=== PATIENT | female | born 1960 ===

== ENCOUNTER 2017-11-24 11:44 | Emergency (ER) | payer OTHER ==
[2017-11-24 11:54] VITALS: BP 156/78; PULSE 82; O2SAT 98
[2017-11-24 12:04] VITALS: RESP 18; TEMP 97.4
--- NOTE | 2017-11-24 13:08 | ED PDOC ---
HPI: Back Time Seen by Provider: 11/24/17 13:00 Chief Complaint (Nursing): Back Pain Chief Complaint (Provider): Back Pain History Per: Patient History/Exam Limitations: no limitations Onset/Duration Of Symptoms: Other (x1 week) Current Symptoms Are (Timing): Still Present Additional Complaint(s): 57 year old female presents to ED with complaints of lower back pain x1 week and has a past medical history of HTN. Patient states that the pain is concentrated to a specific point in her lower back and radiates into her right leg to the plantar aspect of her right foot. Denies any trauma, and states she was picking up something off the floor at time of onset. Notes she has experienced a similar pain 3 years ago. PCP: None - Risk Factors AAA Risk Factors: Pos: Older Than 49 Years Of Age, Hypertension Past Medical History Reviewed: Historical Data, Nursing Documentation, Vital Signs Vital Signs: Last Vital Signs Temp 97.4 F L 11/24/17 12:01 Pulse 82 11/24/17 12:01 Resp 18 11/24/17 12:01 BP 156/78 H 11/24/17 12:01 Pulse Ox 98 11/24/17 12:01 - Medical History PMH: HTN - Family History Family History: States: Unknown Family Hx - Living Arrangements Living Arrangements: With Family - Social History Alcohol: None Drugs: Denies - Home Medications Home Medications: Ambulatory Orders Medication Instructions Recorded Naproxen 375 mg PO Q8 PRN #21 tab 04/25/15 diaZEpam [Valium] 5 mg PO Q6 PRN #14 tab 04/25/15 oxyCODONE/Acetaminophen [Percocet 1 ea PO Q6 #10 tab 04/25/15 5/325 mg Tab] Ibuprofen [Motrin] 600 mg PO Q8 PRN #21 tab 12/02/17 Promethazine/Codeine 5 ml PO Q12 PRN #100 ml 12/02/17 [Codeine/Promethazine 10 MG/5 Ml-6.25 MG/5 Ml] - Allergies Allergies/Adverse Reactions: Allergies Allergy/AdvReac Type Severity Reaction Status Date / Time No Known Allergies Allergy Verified 11/24/17 12:01 Review of Systems ROS Statement: Except As Marked, All Systems Reviewed And Found Negative Musculoskeletal: Positive for: Back Pain, Leg Pain (back pain radiates into her right leg) Physical Exam - Reviewed Nursing Documentation Reviewed: Yes Vital Signs Reviewed: Yes - Physical Exam Appears: Positive for: Non-toxic, Uncomfortable Back: Positive for: Other ((+) right-sided straight leg raise. Pain reproducible from paraspinal L5-6 region to piriformis to plantar region of right foot). Negative for: Normal Inspection, Vertebral Tenderness Neurologic/Psych: Negative for: Motor/Sensory Deficits - ECG O2 Sat by Pulse Oximetry: 98 (RA) Pulse Ox Interpretation: Normal Medical Decision Making Medical Decision Makin Initial impression: sciatica Initial plan: * Dexamethasone 10mg IM * Toradol 60mg IM * Acetaminophen 650mg PO * Re-eval Scribe Attestation: Documented by Maris Garcia, acting as a scribe for Osiel Ward PA-C. Provider Scribe Attestation: All medical record entries made by the Scribe were at my direction and personally dictated by me. I have reviewed the chart and agree that the record accurately reflects my personal performance of the history, physical exam, medical decision making, and the department course for this patient. I have also personally directed, reviewed, and agree with the discharge instructions and disposition. Disposition - Clinical Impression Clinical Impression: Sciatic leg pain, Chronic back pain, Low back pain - Disposition Referrals: [facility] [Outside] Disposition Time: 13:20 Condition: GOOD Additional Instructions: 650mg acetaminophin or tylenol 3 times a day 600mg ibuprofen or motrin 4 times a day follow up with referral clinic, noted below for buttermaker management of this chronic condition Instructions: Low Back Pain (DC), Sciatica (DC), Sciatica Exercises Forms: nap- [employer] (Martiniquais) Print Language: MARSHALLESE
== END 2017-11-24 13:36 | disposition home or self-care (01) ==
LOC: H.ER 11:44
DX: G89.29 Other chronic pain (principal); I10 Essential (primary) hypertension
CPT/HCPCS: 96372; 99282; J1100; J1885

== ENCOUNTER 2017-12-02 10:41 | Emergency (ER) | payer OTHER ==
[2017-12-02 10:56] VITALS: BP 155/84; PULSE 80; TEMP 97; O2SAT 98
[2017-12-02 10:57] VITALS: BMI 31.8
--- NOTE | 2017-12-02 12:10 | ED PDOC ---
HPI: CCC, URI, Sore Throat Time Seen by Provider: 12/02/17 12:03 Chief Complaint (Nursing): ENT Problem Chief Complaint (Provider): ENT Problem History Per: Patient History/Exam Limitations: no limitations Onset/Duration Of Symptoms: Days (x4) Current Symptoms Are (Timing): Still Present Sick Contacts (Context): None Associated Symptoms: Fever, Sore Throat, Cough, Other (headache) Additional Complaint(s): 57 year old female with medical history of hypertension, presents to the emergency department with a complaint of fever, headache, sore throat and cough ongoing for 4 days. She denied any sick contacts at home and has been taking Tylenol for relief. PMD: none provided Past Medical History Reviewed: Historical Data, Nursing Documentation, Vital Signs Vital Signs: Last Vital Signs Temp 97 F L 12/02/17 10:55 Pulse 80 12/02/17 10:55 Resp BP 155/84 H 12/02/17 10:55 Pulse Ox 98 12/02/17 12:58 - Medical History PMH: HTN - Surgical History Surgical History: No Surg Hx - Family History Family History: States: Unknown Family Hx - Social History Current smoker - smoking cessation education provided: No Alcohol: None Drugs: Denies - Home Medications Home Medications: Ambulatory Orders Medication Instructions Recorded Naproxen 375 mg PO Q8 PRN #21 tab 04/25/15 diaZEpam [Valium] 5 mg PO Q6 PRN #14 tab 04/25/15 oxyCODONE/Acetaminophen [Percocet 1 ea PO Q6 #10 tab 04/25/15 5/325 mg Tab] Ibuprofen [Motrin] 600 mg PO Q8 PRN #21 tab 12/02/17 Promethazine/Codeine 5 ml PO Q12 PRN #100 ml 12/02/17 [Codeine/Promethazine 10 MG/5 Ml-6.25 MG/5 Ml] - Allergies Allergies/Adverse Reactions: Allergies Allergy/AdvReac Type Severity Reaction Status Date / Time No Known Allergies Allergy Verified 11/24/17 12:01 Review of Systems ROS Statement: Except As Marked, All Systems Reviewed And Found Negative Constitutional: Positive for: Fever ENT: Positive for: Throat Pain Respiratory: Positive for: Cough Neurological: Positive for: Headache Physical Exam - Reviewed Nursing Documentation Reviewed: Yes Vital Signs Reviewed: Yes - Physical Exam Appears: Positive for: Non-toxic, No Acute Distress ENT: Positive for: Pharynx Is (within normal limits), TM Is/Are (clear bilaterally), Nasal Congestion, Pharyngeal Erythema (mild). Negative for: Tonsillar Exudate Cardiovascular/Chest: Positive for: Regular Rate, Rhythm, Chest Non Tender Respiratory: Positive for: Normal Breath Sounds. Negative for: Decreased Breath Sounds, Wheezing, Respiratory Distress Neurologic/Psych: Positive for: Alert (x3), Oriented - ECG O2 Sat by Pulse Oximetry: 98 (RA) Pulse Ox Interpretation: Normal - Progress ED Course And Treament: rapid strep negative influenza a/b negative Medical Decision Making Medical Decision Making: Initial Impression: Viral illness Initial Plan: * Rapid strep * Influenza A B Time: 1255 --Rapid strep: negative Scribe Attestation: Documented by Shalini Daly, acting as a scribe for Amparo Bates PA-C. Provider Scribe Attestation: All medical record entries made by the Scribe were at my direction and personally dictated by me. I have reviewed the chart and agree that the record accurately reflects my personal performance of the history, physical exam, medical decision making, and the department course for this patient. I have also personally directed, reviewed, and agree with the discharge instructions and disposition. Disposition - Clinical Impression Clinical Impression: Viral illness - Patient ED Disposition Is Patient to be Admitted: No - Disposition Disposition: Routine/Home Disposition Time: 13:07 Condition: FAIR Prescriptions: Ibuprofen [Motrin] 600 mg PO Q8 PRN #21 tab PRN Reason: Pain, Moderate (4-7) Promethazine/Codeine [Codeine/Promethazine 10 MG/5 Ml-6.25 MG/5 Ml] 5 ml PO Q12 PRN #100 ml PRN Reason: Cough Instructions: Cough, Runny Nose, and the Common Cold, Cough, Adult (DC) Forms: [employer] ED School/Work Excuse Print Language: INDONESIAN
== END 2017-12-02 13:44 | disposition home or self-care (01) ==
LOC: H.ER 10:41
DX: B34.9 Viral infection, unspecified (principal); I10 Essential (primary) hypertension

== ENCOUNTER 2018-07-19 11:20 | Emergency (ER) | payer OTHER ==
[2018-07-19 11:20] VITALS: BMI 31.8
--- NOTE | 2018-07-19 12:03 | ED PDOC ---
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 states since Saturday she's had a productive cough with R sided flank pain present only with coughing. States also that yesterday she developed a fever. Denies SOB, hemoptysis, sick contacts, recent travel, hemoptysis, hx of DVT or PE, leg pain, rash, trauma, hematuria, dysuria, incontinence. Past Medical History Reviewed: Historical Data, Nursing Documentation, Vital Signs Vital Signs: Last Vital Signs Temp 98.3 F 07/19/18 11:28 Pulse 97 H 07/19/18 11:28 Resp 20 07/19/18 11:28 BP 148/75 07/19/18 11:28 Pulse Ox 96 07/19/18 11:28 - Medical History PMH: HTN Denies: Deep Vein Thrombosis, Pulmonary Embolism - Family History Family History: States: No Known Family Hx - Home Medications Home Medications: Ambulatory Orders Medication Instructions Recorded RX: Naproxen 375 mg PO Q8 PRN #21 tab 04/25/15 diaZEpam [Valium] 5 mg PO Q6 PRN #14 tab 04/25/15 oxyCODONE/Acetaminophen [Percocet 1 ea PO Q6 #10 tab 04/25/15 5/325 mg Tab] Ibuprofen [Motrin] 600 mg PO Q8 PRN #21 tab 12/02/17 Promethazine/Codeine 5 ml PO Q12 PRN #100 ml 12/02/17 [Codeine/Promethazine 10 MG/5 Ml-6.25 MG/5 Ml] Albuterol HFA [Ventolin HFA 90 2 puff IH [id number] PRN #60 puff 07/19/18 mcg/actuation (8 g)] Nitrofurantoin Macrocrystals 100 mg PO BID #14 cap 07/19/18 [Macrobid] RX: Promethazine DM [Phenergan DM 5 - 10 ml PO Q8 PRN #120 ml 07/19/18 Syrup] - Allergies Allergies/Adverse Reactions: Allergies Allergy/AdvReac Type Severity Reaction Status Date / Time No Known Allergies Allergy Verified 11/24/17 12:01 Review of Systems ROS Statement: Except As Marked, All Systems Reviewed And Found Negative Constitutional: Positive for: Fever Respiratory: Positive for: Cough Musculoskeletal: Positive for: Back Pain Physical Exam - Physical Exam Appears: Positive for: Well, Non-toxic, No Acute Distress Skin: Positive for: Normal Color, Warm. Negative for: Rash Eye Exam: Positive for: Normal appearance Cardiovascular/Chest: Positive for: Regular Rate, Rhythm, Chest Non Tender Respiratory: Positive for: Normal Breath Sounds. Negative for: Respiratory Distress Gastrointestinal/Abdominal: Positive for: Normal Exam, Soft. Negative for: Tenderness Back: Positive for: Normal Inspection, R CVA Tenderness. Negative for: L CVA Tenderness Neurologic/Psych: Positive for: Alert, Oriented (x3). Negative for: Aphasia, Facial Droop - Laboratory Results Result Diagrams: 07/19/18 12:35 07/19/18 12:35 - ECG O2 Sat by Pulse Oximetry: 96 - Radiology X-Ray: Interpreted by Me (CXR) X-Ray Interpretation: No Acute Disease - Progress ED Course And Treament: CXR, urine ordered. Urine - small blood. Labs, CT abd/pelvis w/o contrast, urine culture ordered. CT abd/pelvis w/o contrast: negative D-dimer: negative. Pt informed of results and agrees with plan and care. Disposition - Clinical Impression Clinical Impression: Acute bronchitis, UTI (urinary tract infection) - Patient ED Disposition Is Patient to be Admitted: No - Disposition Referrals: [facility] [Outside] Disposition: Routine/Home Disposition Time: 14:48 Condition: STABLE Additional Instructions: DARIN JACQUES, thank you for letting us take care of you today. Your provider was Sal Harris MD and you were treated for EAR PAIN,BACK PAIN,COUGH. The emergency medical care you received today was directed at your acute symptoms. If you were prescribed any medication, please fill it and take as directed. It may take several days for your symptoms to resolve. Return to the Emergency Department if your symptoms worsen, do not improve, or if you have any other problems. Please contact your doctor or call one of the physicians/clinics you have been referred to that are listed on the Patient Visit Information form that is included in your discharge packet. Bring any paperwork you were given at discharge with you along with any medications you are taking to your follow up visit. Our treatment cannot replace ongoing medical care by a primary care provider outside of the emergency department. Thank you for allowing the [facility] team to be part of your care today. If you had an X-Ray or CT scan: A Radiologist will review the ED reading if any change in treatment is needed we will contact you. If you had a blood, urine, or wound culture: It will take several days for the results, if any change in treatment is needed we will contact you. If you had an STI test: It will take 48 hours for the results. Please call after 1 week if you have not heard back. Prescriptions: Albuterol HFA [Ventolin HFA 90 mcg/actuation (8 g)] 2 puff IH [id number] PRN #60 puff PRN Reason: Cough/wheezing Nitrofurantoin Macrocrystals [Macrobid] 100 mg PO BID #14 cap RX: Promethazine DM [Phenergan DM Syrup] 5 - 10 ml PO Q8 PRN #120 ml PRN Reason: Cough Instructions: Acute Bronchitis, Adult (DC), Urinary Tract Infection, Adult (DC) Forms: [employer] (Khmer) Wells Criteria for PE - Wells Criteria for Pulmonary Embolism Clinical Signs and Symptoms of DVT: No P.E is #1 Diagnosis, or Equally Likely: No Heart Rate >100: No Immobilization at least 3 days;Surgery previous 4 weeks: No Previous, objectively diagnosed PE or DVT: No Hemoptysis: No Malignancy w/treatment within 6 months, or palliative: No Total Score: 0
[2018-07-19 12:40] LABS: BASO % 0.4 % (0.0-2.0); EOS # 0.3 K/uL (0.0-0.7); EOS % 4.9 % (0.0-4.0); HEMOGLOBIN 13.3 g/dL (12.0-16.0); LYMPH % 33.8 % (20.0-40.0); MEAN CORPUSCULAR HEMOGLOBIN 29.9 pg (27.0-31.0); MEAN CORPUSCULAR HGB CONC 34.4 g/dL (33.0-37.0); MEAN PLATELET VOLUME 7.9 fl (7.2-11.7); MONO # 0.7 K/uL (0.0-0.8); NEUT % 49.9 % (50.0-75.0); NRBC % 0.1 % (0.0-0.0); RBC 4.45 Mil/uL (3.80-5.20)
[2018-07-19 12:47] LABS: SQUAMOUS EPITHIAL 9 /hpf (0-5); URINE AMORPHOUS SEDIMENT RARE /ul (<OCC); URINE BACTERIA RARE (<OCC); URINE BILIRUBIN NEGATIVE (NEGATIVE); URINE BLOOD SMALL (NEGATIVE); URINE CLARITY CLOUDY (Clear); URINE COLOR YELLOW (YELLOW); URINE GLUCOSE (UA) NEG (Normal); URINE LEUKOCYTE ESTERASE MOD Leu/uL (Negative); URINE PROTEIN 30 mg/dL (NEGATIVE); URINE UROBILINOGEN 0.2-1.0 mg/dL (0.2-1.0)
[2018-07-19 12:53] LABS: ALB/GLOB RATIO 1.3 (1.0-2.1); ALBUMIN 4.7 g/dL (3.5-5.0); ALT/SGPT 28 U/L (9-52); AST/SGOT 33 U/L (14-36); BLOOD UREA NITROGEN 18 mg/dl (7-17); CALCIUM 9.2 mg/dL (8.4-10.2); GFR NON-AFRICAN AMERICAN > 60
--- NOTE | 2018-07-19 14:16 | CT ---
Date of service: 07/19/2018 PROCEDURE: CT Abdomen and Pelvis without intravenous contrast HISTORY: R flank pain, UTI COMPARISON: None. TECHNIQUE: Technique. Contrast dose: Radiation dose: Total exam DLP = 827.88 mGy-cm. This CT exam was performed using one or more of the following dose reduction techniques: Automated exposure control, adjustment of the mA and/or kV according to patient size, and/or use of iterative reconstruction technique. FINDINGS: LOWER THORAX: small hiatal hernia. LIVER: Unremarkable. No gross lesion or ductal dilatation. GALLBLADDER AND BILE DUCTS: Unremarkable. PANCREAS: Unremarkable. No gross lesion or ductal dilatation. SPLEEN: Unremarkable. ADRENALS: Unremarkable. No mass. KIDNEYS AND URETERS: Unremarkable. No hydronephrosis. No solid mass. VASCULATURE: Unremarkable. No aortic aneurysm. No aortic atherosclerotic calcification or mural plaque present. BOWEL: Unremarkable. No obstruction. No gross mural thickening. APPENDIX: Unremarkable. Normal appendix. PERITONEUM: Unremarkable. No free fluid. No free air. LYMPH NODES: Unremarkable. No enlarged lymph nodes. BLADDER: Unremarkable. REPRODUCTIVE: Unremarkable. BONES: No acute fracture. OTHER FINDINGS: None. IMPRESSION: Unremarkable non contrast enhanced CT of the abdomen and pelvis.
--- NOTE | 2018-07-19 14:41 | RAD ---
Date of service: 07/19/2018 HISTORY: cough COMPARISON: No prior. TECHNIQUE: Chest PA and lateral FINDINGS: LUNGS: No active pulmonary disease. PLEURA: No significant pleural effusion identified. No pneumothorax apparent. CARDIOVASCULAR: No aortic atherosclerotic calcification present. Normal cardiac size. No pulmonary vascular congestion. OSSEOUS STRUCTURES: No significant abnormalities. VISUALIZED UPPER ABDOMEN: Normal. OTHER FINDINGS: None. IMPRESSION: No active disease.
[2018-07-19 15:22] VITALS: BP 130/76; PULSE 78; RESP 19; TEMP 97.6
[2018-07-19 15:27] VITALS: O2SAT 96
== END 2018-07-19 15:23 | disposition home or self-care (01) ==
LOC: H.ER 11:20
DX: J20.9 Acute bronchitis, unspecified (principal); N39.0 Urinary tract infection, site not specified; I10 Essential (primary) hypertension

== ENCOUNTER 2018-10-07 09:09 | Emergency (ER) | payer OTHER ==
[2018-10-07 09:10] VITALS: BMI 31.8
[2018-10-07 09:25] VITALS: RESP 16; TEMP 97.7
[2018-10-07] MEDS ORDERED: Sodium Chloride 0.9% 1,000 ML IV STA (09:48)
[2018-10-07] MEDS ORDERED: Albuterol-Ipratrop 3 mg / 0.5 (3 ml) UD INH STA (09:48)
[2018-10-07] MEDS ORDERED: guaiFENesin 200 mg/10 ml Syrup UD PO STA (09:48)
[2018-10-07 10:10] LABS: BASO % 0.2 % (0.0-2.0); EOS # 0.3 K/uL (0.0-0.7); EOS % 3.8 % (0.0-4.0); HEMOGLOBIN 13.7 g/dL (12.0-16.0); LYMPH # 2.2 K/uL (1.0-4.3); LYMPH % 29.9 % (20.0-40.0); MEAN CELL VOLUME 86.4 fl (81.0-99.0); MEAN CORPUSCULAR HEMOGLOBIN 29.7 pg (27.0-31.0); MEAN CORPUSCULAR HGB CONC 34.4 g/dL (33.0-37.0); MEAN PLATELET VOLUME 7.7 fl (7.2-11.7); MONO # 0.7 K/uL (0.0-0.8); MONO % 9.7 % (0.0-10.0); NEUT # 4.1 K/uL (1.8-7.0); NEUT % 56.4 % (50.0-75.0); RBC 4.6 Mil/uL (3.80-5.20); WHITE BLOOD COUNT 7.3 K/uL (4.8-10.8)
[2018-10-07 10:20] LABS: BLOOD UREA NITROGEN 23 mg/dl (7-17); CALCIUM 9.9 mg/dL (8.4-10.2); GFR NON-AFRICAN AMERICAN > 60
[2018-10-07] MEDS ORDERED: guaiFENesin 100 mg/5 ml Syrup UD ONE (10:20)
[2018-10-07] MEDS ORDERED: Albuterol-Ipratrop 3 mg / 0.5 (3 ml) UD ONE (10:21)
[2018-10-07 10:29] LABS: SQUAMOUS EPITHIAL 6 /hpf (0-5); URINE BACTERIA RARE (<OCC); URINE BILIRUBIN NEGATIVE (NEGATIVE); URINE BLOOD SMALL (NEGATIVE); URINE CLARITY CLOUDY (Clear); URINE COLOR YELLOW (YELLOW); URINE GLUCOSE (UA) NEG (NEGATIVE); URINE LEUKOCYTE ESTERASE LARGE Leu/uL (Negative); URINE PROTEIN 30 mg/dL (NEGATIVE); URINE UROBILINOGEN 0.2-1.0 mg/dL (0.2-1.0)
--- NOTE | 2018-10-07 10:29 | RAD ---
Date of service: 10/07/2018 HISTORY: chest pain/ r/o infiltrate COMPARISON: 07/19/2018 TECHNIQUE: Chest PA and lateral FINDINGS: LUNGS: No active pulmonary disease. PLEURA: No significant pleural effusion identified. No pneumothorax apparent. CARDIOVASCULAR: No aortic atherosclerotic calcification present. Normal cardiac size. No pulmonary vascular congestion. OSSEOUS STRUCTURES: No significant abnormalities. VISUALIZED UPPER ABDOMEN: Normal. OTHER FINDINGS: None. IMPRESSION: No active disease.
--- NOTE | 2018-10-07 11:43 | ED PDOC ---
History of Present Illness History of Present Illness: 58yo female, comes to ER with flu like symptoms for the past 1 week. Patient reports fever, cough, headache and a sore throat. She denies any associated vomiting or diarrhea. Patient states he has been taking Tylenol at home with minimal relief. She also states in July 2018, patient was here with similar symptoms and had a urine infection as well. Patient did not receive her flu shot this year. No additional complaints. 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 denies: vomiting, diarrhea Hx Influenza Vaccination: No Past Medical History Reviewed: Historical Data, Nursing Documentation, Vital Signs Vital Signs: Last Vital Signs Temp 97.7 F 10/07/18 09:25 Pulse 90 10/07/18 09:25 Resp 16 10/07/18 09:25 BP 148/77 10/07/18 09:25 Pulse Ox 96 10/07/18 09:25 - Medical History PMH: HTN Denies: Deep Vein Thrombosis, Pulmonary Embolism - Surgical History Surgical History: No Surg Hx - Family History Family History: States: Unknown Family Hx - Home Medications Home Medications: Ambulatory Orders Medication Instructions Recorded Naproxen 375 mg PO Q8 PRN #21 tab 04/25/15 diaZEpam [Valium] 5 mg PO Q6 PRN #14 tab 04/25/15 oxyCODONE/Acetaminophen [Percocet 1 ea PO Q6 #10 tab 04/25/15 5/325 mg Tab] Ibuprofen [Motrin] 600 mg PO Q8 PRN #21 tab 12/02/17 Promethazine/Codeine 5 ml PO Q12 PRN #100 ml 12/02/17 [Codeine/Promethazine 10 MG/5 Ml-6.25 MG/5 Ml] Albuterol HFA [Ventolin HFA 90 2 puff IH [id number] PRN #60 puff 07/19/18 mcg/actuation (8 g)] Nitrofurantoin Macrocrystals 100 mg PO BID #14 cap 07/19/18 [Macrobid] Promethazine DM [Phenergan DM 5 - 10 ml PO Q8 PRN #120 ml 07/19/18 Syrup] Cephalexin [cephalexin] 500 mg PO TID #21 cap 10/07/18 Ibuprofen [Motrin Tab] 600 mg PO Q6 PRN #15 tab 10/07/18 guaiFENesin [guaifENESIN] 200 mg PO Q4 PRN #200 ml 10/07/18 - Allergies Allergies/Adverse Reactions: Allergies Allergy/AdvReac Type Severity Reaction Status Date / Time No Known Allergies Allergy Verified 10/07/18 09:23 Review of Systems ROS Statement: Except As Marked, All Systems Reviewed And Found Negative Constitutional: Positive for: Fever ENT: Positive for: Throat Pain Respiratory: Positive for: Cough Gastrointestinal: Negative for: Nausea, Vomiting, Diarrhea Neurological: Positive for: Headache Physical Exam - Reviewed Nursing Documentation Reviewed: Yes Vital Signs Reviewed: Yes - Physical Exam Appears: Positive for: Non-toxic, No Acute Distress Head Exam: Positive for: ATRAUMATIC, NORMAL INSPECTION, NORMOCEPHALIC Skin: Positive for: Normal Color Eye Exam: Positive for: Normal appearance Neck: Positive for: Normal, Supple Cardiovascular/Chest: Positive for: Regular Rate, Rhythm Respiratory: Positive for: Normal Breath Sounds, Other (patient actively coughing in ER) Gastrointestinal/Abdominal: Positive for: Normal Exam, Soft Back: Positive for: Normal Inspection Extremity: Positive for: Normal ROM Neurologic/Psych: Positive for: Alert, Oriented Medical Decision Making Medical Decision Making: Impression: 58yo female with flu like symptoms Plan: -- Patient is out of range for empiric tamiflu treatment -- Urinalysis -- Labs -- Chest x-ray -- Urine culture 1140 CXR FINDINGS: LUNGS: No active pulmonary disease. PLEURA: No significant pleural effusion identified. No pneumothorax apparent. CARDIOVASCULAR: No aortic atherosclerotic calcification present. Normal cardiac size. No pulmonary vascular congestion. OSSEOUS STRUCTURES: No significant abnormalities. VISUALIZED UPPER ABDOMEN: Normal. OTHER FINDINGS: None. IMPRESSION: No active disease. Patient to be discharged home on keflex to treat urine infection. Urine cultures sent. On reassessment, patient is in no acute distress and stable for discharge home. Scribe Attestation: Documented by Shelli Beckford acting as a scribe for Miguel Ángel Askew DO. Provider Attestation: All medical record entries made by the Scribe were at my direction and personally dictated by me. I have reviewed the chart and agree that the record accurately reflects my personal performance of the history, physical exam, medical decision making, and the department course for this patient. I have also personally directed, reviewed, and agree with the discharge instructions and disposition. - Laboratory Results Result Diagrams: 10/07/18 10:00 10/07/18 10:00 Lab Results: Urine Color Yellow (YELLOW) 10/07/18 10:00 Urine Clarity Cloudy (Clear) 10/07/18 10:00 Urine pH 5.0 (5.0-8.0) 10/07/18 10:00 Ur Specific [place] 1.027 (1.003-1.030) 10/07/18 10:00 Urine Protein 30 mg/dL (NEGATIVE) 10/07/18 10:00 Urine Glucose (UA) Neg mg/dL (NEGATIVE) 10/07/18 10:00 Urine Ketones Negative mg/dL (NEGATIVE) 10/07/18 10:00 Urine Blood Small (NEGATIVE) 10/07/18 10:00 Urine Nitrate Negative (NEGATIVE) 10/07/18 10:00 Urine Bilirubin Negative (NEGATIVE) 10/07/18 10:00 Urine Urobilinogen 0.2-1.0 mg/dL (0.2-1.0) 10/07/18 10:00 Ur Leukocyte Esterase Large Pat/uL (Negative) 10/07/18 10:00 Urine RBC (Auto) 6 /hpf (0-3) H 10/07/18 10:00 Urine Microscopic WBC 23 /hpf (0-5) H 10/07/18 10:00 Ur Squamous Epith Cells 6 /hpf (0-5) H 10/07/18 10:00 Urine Bacteria Rare (<OCC) 10/07/18 10:00 - ECG O2 Sat by Pulse Oximetry: 96 Disposition - Clinical Impression Clinical Impression: UTI (urinary tract infection), Flu-like symptoms, Cough - Disposition Referrals: [facility] [place] [Outside] Disposition: Routine/Home Disposition Time: 11:40 Condition: STABLE Additional Instructions: Return to ER for any worse or new symptoms. Take medications as directed. Drink plenty of fluids. Prescriptions: Cephalexin [cephalexin] 500 mg PO TID #21 cap guaiFENesin [guaifENESIN] 200 mg PO Q4 PRN #200 ml PRN Reason: Cough Ibuprofen [Motrin Tab] 600 mg PO Q6 PRN #15 tab PRN Reason: Pain, Moderate (4-7) Instructions: Urinary Tract Infections in Adults, Cough, Adult (DC) Forms: [email or web address] (Mongolian) Print Language: AFGHAN
[2018-10-07 12:00] VITALS: BP 135/70; PULSE 82; O2SAT 100
== END 2018-10-07 11:33 | disposition home or self-care (01) ==
LOC: H.ER 09:09
DX: N39.0 Urinary tract infection, site not specified (principal); J11.1 Influenza due to unidentified influenza virus with other respiratory manifestations; I10 Essential (primary) hypertension; R05 Cough
CPT/HCPCS: 71046; 80048; 81003; 81025; 85025; 87086; 96360; 99284; J7030

== ENCOUNTER 2018-11-27 09:59 | Emergency (ER) | payer SELFPAY ==
[2018-11-27 09:59] VITALS: BMI 31.8
--- NOTE | 2018-11-27 10:44 | ED PDOC ---
HPI: Back Time Seen by Provider: 11/27/18 10:21 Chief Complaint (Nursing): Chest Pain Chief Complaint (Provider): Right back pain History Per: Patient History/Exam Limitations: no limitations Onset/Duration Of Symptoms: Persistent Current Symptoms Are (Timing): Still Present Quality Of Discomfort: "Pain" Associated Symptoms: None Additional History Per: Patient Additional Complaint(s): 58yo female, otherwise well, comes to ER reporting right flank pain as well as right back pain x 5 weeks. She reports cough and fever intially, but now both have resolved. Otherwise, no fever, chills, chest pain, shortness of breath, dysuria or hematuria. Patient does report the back pain radiates up and down her back. No additional complaints. PMD: Edison Garcia Past Medical History Reviewed: Historical Data, Nursing Documentation, Vital Signs - Medical History PMH: HTN Denies: Deep Vein Thrombosis, Pulmonary Embolism - Surgical History Surgical History: No Surg Hx - Family History Family History: States: Unknown Family Hx - Immunization History Hx Influenza Vaccination: No - Home Medications Home Medications: Ambulatory Orders Medication Instructions Recorded Naproxen 375 mg PO Q8 PRN #21 tab 04/25/15 diaZEpam [Valium] 5 mg PO Q6 PRN #14 tab 04/25/15 oxyCODONE/Acetaminophen [Percocet 1 ea PO Q6 #10 tab 04/25/15 5/325 mg Tab] Ibuprofen [Motrin] 600 mg PO Q8 PRN #21 tab 12/02/17 Promethazine/Codeine 5 ml PO Q12 PRN #100 ml 12/02/17 [Codeine/Promethazine 10 MG/5 Ml-6.25 MG/5 Ml] Albuterol HFA [Ventolin HFA 90 2 puff IH [id number] PRN #60 puff 07/19/18 mcg/actuation (8 g)] Nitrofurantoin Macrocrystals 100 mg PO BID #14 cap 07/19/18 [Macrobid] Promethazine DM [Phenergan DM 5 - 10 ml PO Q8 PRN #120 ml 07/19/18 Syrup] Cephalexin [cephalexin] 500 mg PO TID #21 cap 10/07/18 Ibuprofen [Motrin Tab] 600 mg PO Q6 PRN #15 tab 10/07/18 guaiFENesin [guaifENESIN] 200 mg PO Q4 PRN #200 ml 10/07/18 Azithromycin [Zithromax] 250 mg PO DAILY #6 tab 11/27/18 Naproxen [Naprosyn] 500 mg PO Q12H #20 tab 11/27/18 - Allergies Allergies/Adverse Reactions: Allergies Allergy/AdvReac Type Severity Reaction Status Date / Time No Known Allergies Allergy Verified 11/27/18 10:20 Review of Systems ROS Statement: Except As Marked, All Systems Reviewed And Found Negative Constitutional: Negative for: Fever, Chills Respiratory: Negative for: Cough Genitourinary Female: Negative for: Dysuria, Frequency, Hematuria Musculoskeletal: Positive for: Back Pain Physical Exam - Reviewed Nursing Documentation Reviewed: Yes Vital Signs Reviewed: Yes - Physical Exam Appears: Positive for: Non-toxic, No Acute Distress Head Exam: Positive for: ATRAUMATIC, NORMAL INSPECTION, NORMOCEPHALIC Skin: Positive for: Normal Color, Warm. Negative for: Rash Eye Exam: Positive for: EOMI, Normal appearance, PERRL Neck: Positive for: Normal, Painless ROM Cardiovascular/Chest: Positive for: Regular Rate, Rhythm Respiratory: Positive for: CNT, Normal Breath Sounds Gastrointestinal/Abdominal: Positive for: Normal Exam, Soft Back: Positive for: R CVA Tenderness. Negative for: Vertebral Tenderness Extremity: Positive for: Normal ROM. Negative for: Deformity Neurological/Psych: Positive for: Awake, Alert, Normal Tone - ECG ECG: Positive for: Interpreted By Me, Viewed By Me ECG Rhythm: Positive for: Normal QRS, Normal ST Segment, Sinus Rhythm. Negative for: ST/T Changes Rate: 88 Medical Decision Making Medical Decision Makinyo female with right flank and right back pain Plan: -- CXR -- Urinalysis --- Scribe Attestation: Documented by Shelli Beckford, acting as a scribe for Sammy Palacios MD. Provider Scribe Attestation: All medical record entries made by the Scribe were at my direction and personally dictated by me. I have reviewed the chart and agree that the record accurately reflects my personal performance of the history, physical exam, medical decision making, and the department course for this patient. I have also personally directed, reviewed, and agree with the discharge instructions and disposition. Disposition - Clinical Impression Clinical Impression: Low back pain, Cough - Patient ED Disposition Is Patient to be Admitted: No Counseled Patient/Family Regarding: Studies Performed, Diagnosis, Need For Followup, Rx Given - Disposition Referrals: [facility] [Outside] Disposition: Routine/Home Disposition Time: 11:52 Condition: FAIR Prescriptions: Azithromycin [Zithromax] 250 mg PO DAILY #6 tab Naproxen [Naprosyn] 500 mg PO Q12H #20 tab Instructions: Low Back Pain in Adults, Acute Bronchitis Forms: [facility] ([place]) Print Language: MONGOLIAN
[2018-11-27 11:29] LABS: SQUAMOUS EPITHIAL 2 /hpf (0-5); URINE BILIRUBIN NEGATIVE (NEGATIVE); URINE BLOOD SMALL (NEGATIVE); URINE CLARITY SLIGHTY-CLOUDY (Clear); URINE COLOR YELLOW (YELLOW); URINE GLUCOSE (UA) NEG (NEGATIVE); URINE LEUKOCYTE ESTERASE SMALL Leu/uL (Negative); URINE PROTEIN NEGATIVE (NEGATIVE)
--- NOTE | 2018-11-27 11:30 | RAD ---
Date of service: 11/27/2018 HISTORY: cough COMPARISON: 10/07/2018. TECHNIQUE: Chest PA and lateral FINDINGS: LUNGS: No active pulmonary disease. PLEURA: No significant pleural effusion identified. No pneumothorax apparent. CARDIOVASCULAR: No aortic atherosclerotic calcification present. No radiographic findings to suggest acute or significant cardiovascular disease. No pulmonary vascular congestion. OSSEOUS STRUCTURES: No significant abnormalities. VISUALIZED UPPER ABDOMEN: Normal. OTHER FINDINGS: None. IMPRESSION: No active disease. No significant interval change compared to the prior examination(s).
[2018-11-27 12:04] VITALS: BP 132/74; PULSE 82; RESP 19; TEMP 98.6; O2SAT 98
--- NOTE | 2018-11-27 17:15 | CARD ---
APPROVED REPORT Date of service: 11/27/2018 EKG Measurement Heart [id number] ID [id number] <Conclusion> Normal sinus rhythm Minimal voltage criteria for LVH, may be normal variant Borderline ECG
== END 2018-11-27 12:24 | disposition home or self-care (01) ==
LOC: H.ER 09:59
DX: R05 Cough (principal); M54.5 Low back pain; I10 Essential (primary) hypertension